=== PATIENT | male | born 1945 | race Caucasian/White ===

== ENCOUNTER 2023-06-26 09:20 | Day surgery (SDC) | payer OTHER ==
[~2023-06-26] VITALS: Ht 182.9 cm; Wt 99.8 kg
[2023-06-26] MEDS ORDERED: LIDOCAINE 2% JELLY UROJECT 10 ML MM ONE ×2 (10:47→10:49)
[2023-06-26] MEDS ORDERED: BENZOCAINE 20% 0.5mL UD SPRAY MM ONE ×2 (10:47→10:49)
[2023-06-26] MEDS ORDERED: LIDOCAINE 2%, 20 ML MDV ONE ×2 (10:47→10:51)
[2023-06-26] MEDS ORDERED: MIDAZOLAM HCL 5 MG/5 ML VIAL ONE (10:48)
[2023-06-26 11:25] VITALS: O2SAT 97
[2023-06-26 14:06] VITALS: BP_SYST 176; PULSE 99; RESP 19
== END 2023-06-26 13:00 | disposition home or self-care (01) ==
LOC: SDS 09:20 → SMU 09:21 → SDS 13:00
PROVIDERS: ATTEND Internal Medicine Pulmonary Disease
DX: J84.9 Interstitial pulmonary disease, unspecified (principal); R05.3 Chronic cough; J47.9 Bronchiectasis, uncomplicated
CPT/HCPCS: 31624; 87070; 94760; 87116; 87101; 88305; J2250; J2001